=== PATIENT | male | born 1955 | race African-American/Black ===

== ENCOUNTER 2018-06-03 20:51 | Observation (INO) ==
[2018-06-03] MEDS ORDERED: Aspirin 81 MG TAB.CHEW PO ONE (21:05)
[2018-06-03] MEDS ORDERED: *HR* FentaNYL (PF) 100 MCG/2 ML VIAL IVP ONE (21:10)
--- NOTE | 2018-06-03 21:10 | Emergency Department Note ---
Disposition Clinical Impression: Chest pain Qualifiers: Chest pain type: unspecified Qualified Code(s): R07.9 - Chest pain, unspecified Disposition: Still a Patient Condition: Good [facility]errals: [facility]Primary Care Provider[facility] - Forms: ED Satisfaction Letter Time of Disposition: 22:54 Chest Pain HPI - General Chief Complaint: ED Chest Pain Stated Complaint: chest pain Time Seen by Provider: 06/03/18 21:10 Source: patient, EMS Mode of arrival: EMS Limitations: no limitations Vital Signs Reviewed: Yes Nursing Notes Reviewed: Yes - History of Present Illness HPI Narrative: Patient is a 62-year-old male with past medical history of A. fib, has a pacer defibrillator placed, on Coumadin, type 2 diabetes, hypertension. Presents today due to chest discomfort. He states that chest pain started around 9:30 this morning, described as a sharp left-sided pain with no radiation, started as an 8 out of 10 and is now a 5 out of 10. Denies that the pain has never went completely away. Pain does mildly worsened with deep inspiration. Does not worsen with exertion. Denies any other nausea, vomiting, fevers, diarrhea, abdominal pain, dysuria, hematuria. Denies any previous VT, stent placement. He does state that he had a negative heart catheter around 2 years ago. No recent stress test or heart catheter within the past year. Severity scale (1-10): 5 - Related Data Allergies Allergy/AdvReac Type Severity Reaction Status Date / Time No Known Allergies Allergy Verified 06/03/18 20:55 All systems ED: reviewed and negative except as stated. Constitutional: Denies: fever Cardiovascular: Reports: chest pain Respiratory: Reports: dyspnea. Denies: cough, wheezes Gastrointestinal: Denies: abdominal pain, nausea, vomiting, diarrhea Genitourinary: Denies: urgency, dysuria Integumentary: Denies: rash Neurological: Denies: headache, weakness, numbness, paresthesias Chest Pain PMH - Past Medical History Medical history: Reports: coronary artery disease, diabetes, hypertension Psychiatric history: Reports: no psych history - Social History Smoking Status: Current every day smoker Alcohol use: Reports: none Drug use: Reports: none Physical Exam - General Limitations: no limitations General appearance: alert, in no apparent distress - Head Head exam: atraumatic, normocephalic, normal inspection - Eye Eye exam: Present: normal appearance, PERRL, EOMI - ENT ENT exam: normal exam, normal oropharynx, mucous membranes moist - Neck Neck exam: Present: normal inspection, full ROM, trachea midline - Chest Chest inspection: Present: normal inspection, symmetric chest wall rise, other ( Pacemaker of the left chest). Absent: tenderness, rash - Respiratory Respiratory exam: Present: normal lung sounds bilaterally - Cardiovascular Cardiovascular exam: Present: regular rate, normal rhythm, normal heart sounds - Abdominal Exam Abdominal exam: Present: soft, Non-Tender. Absent: tenderness, distention, guarding, rebound, rigidity - Extremities Exam Extremities exam: Present: normal inspection, full ROM. Absent: tenderness, pedal edema - Neurological Exam Neurological exam: Present: alert, oriented X3 - Psychiatric Psychiatric exam: Present: normal affect, normal mood - Skin Skin exam: Present: warm, dry, intact, normal color Course Course Narrative: Patient was given aspirin and, fentanyl for pain control. EKG shows normal sinus rhythm with mild ST elevation in V3. Otherwise no STEMI criteria. Cardiac workup ordered including chest x-ray, troponin, d-dimer was also ordered due to pleuritic nature of the pain. We will check PT/INR due to the patient being on warfarin. 21:52 troponin negative. D-dimer elevated. CTA of the chest ordered. INR 3.2. 22:52 Pending CTA of the chest. Will sign out to night team, Dr. Braswell and Dr. Cohen for further care and disposition. Recommend admission due to nonspecific ST changes in the setting of chest pain. Vital Signs Temperature 97.8 F 06/03/18 20:56 Pulse Rate 68 06/03/18 20:56 Respiratory Rate 13 06/03/18 20:56 Blood Pressure 177/98 06/03/18 20:56 O2 Sat by Pulse Oximetry 100 06/03/18 20:56 Temperature 97.8 F 06/03/18 20:56 Pulse Rate 65 06/03/18 21:35 Respiratory Rate 14 06/03/18 21:35 Blood Pressure 154/86 06/03/18 21:35 O2 Sat by Pulse Oximetry 99 06/03/18 21:35 Oxygen Delivery Oxygen Delivery Room Air Chest Pain - MDM Narrative Medical decision making narrative: Patient was given aspirin and, fentanyl for pain control. EKG shows normal sinus rhythm with mild ST elevation in V3. Otherwise no STEMI criteria. Cardiac workup ordered including chest x-ray, troponin, d-dimer was also ordered due to pleuritic nature of the pain. We will check PT/INR due to the patient being on warfarin. 21:52 troponin negative. D-dimer elevated. CTA of the chest ordered. INR 3.2. 22:52 Pending CTA of the chest. Will sign out to night team, Dr. Braswell and Dr. Cohen for further care and disposition. Recommend admission due to nonspecific ST changes in the setting of chest pain. - Medical Records Medical records reviewed: Yes I reviewed the patient's medical records. - Lab Data Lab results reviewed: Yes I reviewed the patient's lab results. Result diagrams: 06/03/18 21:11 06/03/18 21:11 Lab Results 06/03/18 06/03/18 06/03/18 Range/Units 21:01 21:11 21:11 WBC 6.5 (4.3-11.1) K/mcL RBC 4.36 (4.19-5.50) M/mcL Hgb 13.5 (12.9-16.9) g/dL Hct 39.4 (37.5-50.1) % MCV 90.4 (83.0-100.0) fL MCH 31.0 (28.0-33.3) pg MCHC 34.3 (31.6-35.5) g/dL RDW 13.8 (11.5-14.5) % Plt Count 208 (140-400) K/mcL MPV 9.2 L (9.4-12.4) fL Immature Gran % 0.2 (0-4) % Seg Neutrophils % 53.7 % Lymphocytes % 37.5 % Monocytes % 6.4 % Eosinophils % 2.0 % Basophils % 0.2 % Neutrophils # 3.5 (1.6-8.9) K/mcL Lymphocytes # 2.5 (0.6-4.6) K/mcL Monocytes # 0.4 (0.0-1.3) K/mcL Eosinophils # 0.1 (0.0-0.6) K/mcL Basophils # 0.0 (0.0-0.2) K/mcL PT 35.8 H (9.4-12.1) Seconds INR 3.2 D-Dimer 806 H (0-500) ng/mLFEU Sodium 140 (136-145) mEq/L Potassium 3.4 L (3.5-5.1) mEq/L Chloride 108 H (98-107) mEq/L Carbon Dioxide 27 (23-29) mEq/L BUN 9 (8-23) mg/dL Creatinine 0.86 (0.70-1.30) mg/dL Est GFR ( Amer) > 60 (> 60) Est GFR (Non-Af Amer) > 60 (> 60) BUN/Creatinine Ratio 10 (6-26) Glucose 76 (70-105) mg/dL Calculated Osmolality 287 (280-300) Calcium 9.6 (8.6-10.3) mg/dL Troponin I < 0.03 (< 0.04) ng/mL - Radiology Data Radiology results reviewed: Yes I reviewed the patient's radiology results. - EKG Data EKG attestation: Yes I reviewed and interpreted this EKG. EKG results narrative: 06/03/2018 at 20:54. Normal sinus rhythm. Rate 69. IA 253. QTC 385. Mild left axis deviation. ST elevation in V3. No STEMI criteria. Heart Score - Score History: Moderately Suspicious EKG: Non Specific repolarisation Disturbance Age: 45-65 Risk Factors: 1-2 risk factors Troponin: Less than normal limit HEART Score Total: 4 S.B.A.R. - S.B.A.R. Situation: Demographics, MOA Background: Presenting Complaint, Relevant PMH, Meds, & Allergies Assessment: Vital Signs, Course and respsone to treatment, Exam Concerns, Patient/Family Expectation, Pertinant Lab Results, Outstanding Labs Recommendation: Barrier(s) to disposition, Recommendation based on pending studies, treatments, or consults S.B.A.R. Report Given to: Dr. Shaver, Dr. Braswell
[2018-06-03 21:23] LABS: Basophils % 0.2 %; Eosinophils # 0.1 K/mcL (0.0-0.6); Hematocrit 39.4 % (37.5-50.1); Hemoglobin 13.5 g/dL (12.9-16.9); Immature Granulocytes % 0.2 % (0-4); Lymphocytes # 2.5 K/mcL (0.6-4.6); Lymphocytes % 37.5 %; Mean Corpuscular HGB Conc 34.3 g/dL (31.6-35.5); Mean Corpuscular Volume 90.4 fL (83.0-100.0); Mean Platelet Volume 9.2 fL (9.4-12.4); Monocytes # 0.4 K/mcL (0.0-1.3); Monocytes % 6.4 %; Neutrophils # 3.5 K/mcL (1.6-8.9); Platelet Count 208 K/mcL (140-400); Red Blood Count 4.36 M/mcL (4.19-5.50); Red Cell Distribution Width 13.8 % (11.5-14.5); Segmented Neutrophils % 53.7 %
[2018-06-03 21:28] LABS: INR 3.2; Prothrombin Time 35.8 Seconds (9.4-12.1)
--- NOTE | 2018-06-03 21:30 | Emergency Department Note ---
Disposition Clinical Impression: Chest pain Qualifiers: Chest pain type: unspecified Qualified Code(s): R07.9 - Chest pain, unspecified Disposition: Still a Patient Condition: Good [facility]errals: [facility] [Primary Care Provider] - Forms: ED Satisfaction Letter General Adult HPI - General Chief complaint: ED Chest Pain Stated complaint: chest pain Time Seen by Provider: 06/03/18 21:10 Source: patient, EMS Mode of arrival: EMS Limitations: no limitations - History of Present Illness Pain Scale: 5 - Related Data Allergies Allergy/AdvReac Type Severity Reaction Status Date / Time No Known Allergies Allergy Verified 06/03/18 20:55 Past Medical History - Past Medical History Medical history: Reports: coronary artery disease, diabetes, hypertension Psychiatric history: Reports: no psych history - Social History Smoking Status: Current every day smoker Smokeless Tobacco Status: No Alcohol use: Reports: none Drug use: Reports: none Physical Exam - General Limitations: no limitations General appearance: alert, in no apparent distress Course Vital Signs Temperature 97.8 F 06/03/18 20:56 Pulse Rate 68 06/03/18 20:56 Respiratory Rate 13 06/03/18 20:56 Blood Pressure 177/98 06/03/18 20:56 O2 Sat by Pulse Oximetry 100 06/03/18 20:56 Temperature 97.8 F 06/03/18 20:56 Pulse Rate 63 06/03/18 23:02 Respiratory Rate 11 06/03/18 23:02 Blood Pressure 167/95 06/03/18 23:02 O2 Sat by Pulse Oximetry 95 06/03/18 23:02 Oxygen Delivery Oxygen Delivery Room Air Medical Decision Making - Lab Data Result diagrams: 06/03/18 21:11 06/03/18 21:11 Lab Results 06/03/18 06/03/18 06/03/18 Range/Units 21:01 21:11 21:11 WBC 6.5 (4.3-11.1) K/mcL RBC 4.36 (4.19-5.50) M/mcL Hgb 13.5 (12.9-16.9) g/dL Hct 39.4 (37.5-50.1) % MCV 90.4 (83.0-100.0) fL MCH 31.0 (28.0-33.3) pg MCHC 34.3 (31.6-35.5) g/dL RDW 13.8 (11.5-14.5) % Plt Count 208 (140-400) K/mcL MPV 9.2 L (9.4-12.4) fL Immature Gran % 0.2 (0-4) % Seg Neutrophils % 53.7 % Lymphocytes % 37.5 % Monocytes % 6.4 % Eosinophils % 2.0 % Basophils % 0.2 % Neutrophils # 3.5 (1.6-8.9) K/mcL Lymphocytes # 2.5 (0.6-4.6) K/mcL Monocytes # 0.4 (0.0-1.3) K/mcL Eosinophils # 0.1 (0.0-0.6) K/mcL Basophils # 0.0 (0.0-0.2) K/mcL PT 35.8 H (9.4-12.1) Seconds INR 3.2 D-Dimer 806 H (0-500) ng/mLFEU Sodium 140 (136-145) mEq/L Potassium 3.4 L (3.5-5.1) mEq/L Chloride 108 H (98-107) mEq/L Carbon Dioxide 27 (23-29) mEq/L BUN 9 (8-23) mg/dL Creatinine 0.86 (0.70-1.30) mg/dL Est GFR ( Amer) > 60 (> 60) Est GFR (Non-Af Amer) > 60 (> 60) BUN/Creatinine Ratio 10 (6-26) Glucose 76 (70-105) mg/dL Calculated Osmolality 287 (280-300) Calcium 9.6 (8.6-10.3) mg/dL Troponin I < 0.03 (< 0.04) ng/mL Attestation Statement - Attestation Attestation: I examined this patient and my medical decision-making was reviewed with the WILD LIFE MANAGER/PA/Advanced Practice Nurse/Resident Physician. I agree with the documented findings, disposition and treatment plan as described except to the extent set forth below. Presents with chest pain which is constant for the last 12 hours and is worse with exertion. No diaphoresis or dyspnea. Does have a pleuritic aspect. No radiation. Patient states he had a coronary catheterization 2 years ago which was clean. Has a pacemaker. Does have atrial fibrillation and is on anticoagulation with Coumadin and a INR is checked as well as labs including troponin and d-dimer. 2130 I did review the EKG showing normal sinus rhythm with rate of 69 with some nonspecific EKG changes in lead 1 as well as lead V2 which intact some minimal ST elevation which is less than 1 mm. Labs are pending. D-dimer is positive/ elevated so the patient will have a CT scan of the chest 214
[2018-06-03] MEDS ORDERED: Isovue-370 500 ML INFUS..BTL IV ONE (21:43)
[2018-06-03 21:44] LABS: BUN/Creatinine Ratio 10 (6-26); Blood Urea Nitrogen 9 mg/dL (8-23); Calcium 9.6 mg/dL (8.6-10.3); Carbon Dioxide 27 mEq/L (23-29); Chloride 108 mEq/L (98-107); Glucose 76 mg/dL (70-105); Osmolality,Calculated 287 (280-300); Potassium 3.4 mEq/L (3.5-5.1); Sodium 140 mEq/L (136-145); eGFR For Non-African Americans > 60 (> 60)
[2018-06-03 21:45] LABS: Troponin I < 0.03 ng/mL (< 0.04)
[2018-06-04] MEDS ORDERED: Naloxone 0.4 MG/ML INJ IVP PRN (02:43)
[2018-06-04] MEDS ORDERED: Dextrose Gel 15 GM/37.5 ML TUBE PO PRN ×2 (02:44)
[2018-06-04] MEDS ORDERED: *HR* Dextrose 50 % in Water (Syg) 50 ML SYRINGE IVP PRN (02:44)
[2018-06-04] MEDS ORDERED: D5% in Water 1,000 ML IVC PRN (02:44)
[2018-06-04] MEDS ORDERED: Nitroglycerin 0.4 MG TAB.SUBL SL PRN (02:46)
[2018-06-04 03:57] LABS: Hematocrit 43.9 % (37.5-50.1); Hemoglobin 14.6 g/dL (12.9-16.9); Mean Corpuscular HGB Conc 33.3 g/dL (31.6-35.5); Mean Corpuscular Volume 90.1 fL (83.0-100.0); Mean Platelet Volume 9.1 fL (9.4-12.4); Platelet Count 197 K/mcL (140-400); Red Blood Count 4.87 M/mcL (4.19-5.50); Red Cell Distribution Width 13.9 % (11.5-14.5)
[2018-06-04 04:02] LABS: INR 2.9; Prothrombin Time 32.3 Seconds (9.4-12.1)
[2018-06-04 04:05] LABS: BUN/Creatinine Ratio 11 (6-26); Blood Urea Nitrogen 8 mg/dL (8-23); Calcium 9.9 mg/dL (8.6-10.3); Carbon Dioxide 29 mEq/L (23-29); Chloride 107 mEq/L (98-107); Glucose 95 mg/dL (70-105); Osmolality,Calculated 288 (280-300); Potassium 3.7 mEq/L (3.5-5.1); Sodium 140 mEq/L (136-145); eGFR For Non-African Americans > 60 (> 60)
[2018-06-04] MEDS: Insulin LISPRO 300 UNITS/3 ML VIAL SQ SCH ×3 (06:22→18:16)
--- NOTE | 2018-06-04 06:31 | Internal Med History&Physical ---
Date of Encounter: 06/04/18 Time of Encounter: 02:20 Internal Medicine - H&P: HPI Chief complaint: Chest pain Admitted From: Home Plans for Post Hospital Care: Home History of present illness: Mr. Wilks is a 62 year old male Patient states that he woke up the day of admission and had some left sided chest pain which he tried to ignore. Later in the afternoon it started to increase, but he thought it was indigestion from greasy sausage that he had eaten the night before. He tried Rolaids which improved the pain slightly. The pain slowly returned, he mentioned this to a friend on the phone who advised him to go the emergency room for evaluation. He has a history of atrial fibrillation, pacemaker placement, and hypertension. Of note, patient was out working in the yard 2 days prior to his symptom onset. In the emergency room chest x-ray showed mild pulmonary basal congestion, CTA was negative for PE, his INR was 3.2. His troponin was less than 0.03. EKG showed normal sinus rhythm with perhaps a mild ST change and V3. He was admitted for further management of his chest pain. Upon my assessment, patient is sleeping comfortably in the bed. He states that he still has some chest pain but it is improved. He denies nausea, vomiting, fever, diarrhea, abdominal pain. Past Med Surg Social Fam HX - Past Medical History Medical history: coronary artery disease, diabetes, hypertension Psychiatric history: no psych history - Social History Smoking Status: Current every day smoker Smokeless Tobacco Status: No Alcohol use: none Drug use: none - Family History Mother Hx Family Cardiac Disorders: Yes ([place]) Hx Family Neuromuscular Disorders: Yes (stroke) Brother Hx Family Cardiac Disorders: Yes (pacer) Internal Medicine - H&P: Meds Atenolol [Tenormin] 5 mg PO DAILY 06/04/18 [History] Omeprazole [PriLOSEC] 40 mg PO DAILY 06/04/18 [History] Warfarin [Coumadin] 7 mg PO DAILY 06/04/18 [History] Warfarin [Coumadin] 7.5 mg PO DAILY 06/04/18 [History] 3 Allergy/AdvReac Type Severity Reaction Status Date / Time No Known Allergies Allergy Verified 06/03/18 20:55 All Systems PM: A 10-system review of systems was performed and is negative for pertinent findings except as documented above in the HPI. - Constitutional Vitals: Temp Pulse Resp BP Pulse Ox 98.0 F 62 16 172/84 99 06/04/18 01:17 06/04/18 01:17 06/04/18 01:17 06/04/18 01:17 06/04/18 01:17 General appearance: Present: cooperative, A&O X 3, pleasant, no acute distress, answers questions appropriately - Head Head exam: Present: normal inspection - Eye Eye exam: Present: EOMI, normal appearance - Respiratory Respiratory exam: Present: chest wall tenderness, CTAB. Absent: respiratory distress, wheezes Additional comments: Slightly tender to palpation on the left side of the chest - Cardiovascular Cardiovascular exam: Present: RRR. Absent: diastolic murmur, systolic murmur - GI/Abdominal GI/Abdominal exam: Present: normal bowel sounds, soft. Absent: tenderness - Extremities Exam Extremities exam: Present: warm, radial pulses palpable and symmetrical. Absent : calf tenderness, pedal edema, tenderness - Neurological Exam Neurological exam: Present: no focal deficits, strengths equal and symetr throughout. Absent: motor sensory deficit, facial droop, speech deficit - Skin Skin exam: Present: dry, normal color, warm Internal Med - H&P Results - Labs CBC & Chem 7: 06/04/18 03:30 06/04/18 03:30 Labs: Short CBC 06/04/18 Range/Units 03:30 WBC 6.0 (4.3-11.1) K/mcL Hgb 14.6 (12.9-16.9) g/dL Hct 43.9 (37.5-50.1) % Plt Count 197 (140-400) K/mcL BMP 06/04/18 03:30 Sodium 140 Potassium 3.7 Chloride 107 Carbon Dioxide 29 BUN 8 Creatinine 0.72 Glucose 95 Calcium 9.9 Cardiac Enzymes 06/04/18 Range/Units 03:30 Troponin I < 0.03 (< 0.04) ng/mL - Assessment and plan (1) Chest pain Current Visit: Yes Status: Acute Assessment and plan: Patient presented with chest pain, workup in the emergency room negative. Therapeutic INR 2.9. 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 Consider stress test or echo, as patient has not had either for many years Qualifiers: Chest pain type: unspecified Qualified Code(s): R07.9 - Chest pain, unspecified (2) History of atrial fibrillation Current Visit: Yes Status: Acute Assessment and plan: Patient on Coumadin, currently therapeutic at 2.9 Continue to monitor (3) Diabetes Current Visit: Yes Status: Acute Assessment and plan: Patient takes glipizide at home, blood glucose 76 in the emergency room Continue to monitor blood sugar before meals at bedtime Low-dose insulin sliding scale if needed Qualifiers: Diabetes mellitus type: type 2 Diabetes mellitus emt intermediate insulin use: without mcc use Diabetes mellitus complication status: without complication Qualified Code(s): E11.9 - Type 2 diabetes mellitus without complications (4) Hypertension Current Visit: Yes Status: Acute Assessment and plan: Patient takes atenolol at home. Continue to monitor Qualifiers: Hypertension type: essential hypertension Qualified Code(s): I10 - Essential (primary) hypertension - Time Spent With Patient Total time spent is greater than 50% in coordination of care (as documented) at patient's floor/unit and/or counseling patient: Greater than 35 minutes
[2018-06-04] MEDS ORDERED: Regadenoson 0.4 MG/5 ML SYRINGE IVP ONE ×2 (09:37→10:10)
--- NOTE | 2018-06-04 15:39 | Internal Med Progress Note ---
Hospitalist Progress Note - Encounter Date of Encounter: 06/04/18 Time of Encounter: 15:29 - Exam Vitals: Temp Pulse Resp BP Pulse Ox 97.7 F 65 16 151/89 95 06/04/18 12:56 06/04/18 12:56 06/04/18 12:56 06/04/18 12:56 06/04/18 12:56 Exam: General appearance: Present: cooperative, A&O X 3, pleasant, no acute distress, answers questions appropriately - Head Head exam: Present: normal inspection - Eye Eye exam: Present: EOMI, normal appearance - Respiratory Respiratory exam: Present: chest wall tenderness, CTAB. Absent: respiratory distress, wheezes Additional comments: Slightly tender to palpation on the left side of the chest - Cardiovascular Cardiovascular exam: Present: RRR. Absent: diastolic murmur, systolic murmur - GI/Abdominal GI/Abdominal exam: Present: normal bowel sounds, soft. Absent: tenderness - Extremities Exam Extremities exam: Present: warm, radial pulses palpable and symmetrical. Absent : calf tenderness, pedal edema, tenderness - Neurological Exam Neurological exam: Present: no focal deficits, strengths equal and symetr throughout. Absent: motor sensory deficit, facial droop, speech deficit - Skin Skin exam: Present: dry, normal color, warm - Assessment and Plan (1) Chest pain Current Visit: Yes Status: Acute Assessment and Plan: 1 Presented with L sided CP which he mistaken for indigestion . The pain was relieved with nitro He has hx of afib and pacemaker placement. He is on coumadin CTA of chest which was negative Trop negative - underwent cardiac stress - Impression: Pharmacologic stress ECG is non diagnostic for ischemia due to baseline non-specific ST and T changes. Gated EF = 72%. Small sized, mild intensity, fixed inferior perfusion defect. Wall motion appears normal. These findings are consistent with artifact. Perfusion imaging was positive for ischemia. I consulted cardiology Dr Michelle who will see patient (2) Diabetes Current Visit: Yes Status: Acute (3) History of atrial fibrillation Current Visit: Yes Status: Acute Assessment and Plan: Cont with Coumadin - INR 2.9 cont to monitor- pharmacy to dose (4) Hypertension Current Visit: Yes Status: Acute Assessment and Plan: cont with home medications (5) DVT prophylaxis Current Visit: Yes Status: Acute Assessment and Plan: on Coumadin we will continue - Time Spent with Patient Total time spent is greater than 50% in coordination of care (as documented) at patient's floor/unit and/or counseling patient: Internal Medicine: Result - Labs CBC & Chem 7: 06/04/18 03:30 06/04/18 03:30 Labs: Short CBC 06/04/18 Range/Units 03:30 WBC 6.0 (4.3-11.1) K/mcL Hgb 14.6 (12.9-16.9) g/dL Hct 43.9 (37.5-50.1) % Plt Count 197 (140-400) K/mcL BMP 06/04/18 03:30 Sodium 140 Potassium 3.7 Chloride 107 Carbon Dioxide 29 BUN 8 Creatinine 0.72 Glucose 95 Calcium 9.9 Cardiac Enzymes 06/04/18 06/04/18 Range/Units 03:30 09:13 Troponin I < 0.03 < 0.03 (< 0.04) ng/mL - ABG Interpretation ABG results: PT/INR, D-dimer PT 32.3 Seconds (9.4-12.1) H 06/04/18 03:30 D-Dimer 806 ng/mLFEU (0-500) H 06/03/18 21:01 - Impressions Impressions Echocardiogram 06/04/18 08:11 Impressions: LVEF 60-65%. Normal LV chamber size and function. Mild concentric left ventricular hypertrophy. Mild left ventricular diastolic dysfunction. Chordal BRIGETTE (systolic anterior motion) of the MV, no LVOT obstruction. Normal right ventricular structure and function. Mild pulmonic regurgitation. No evidence of pulmonary hypertension. Findings: Study Quality * Technically adequate exam. Left Ventricle * LVEF 60-65%. * Normal LV chamber size and function. * Mild concentric left ventricular hypertrophy. * Mild left ventricular diastolic dysfunction. * Chordal BRIGETTE (systolic anterior motion) of the MV, no LVOT obstruction. Right Ventricle * Normal right ventricular structure and function. ECG Findings * Normal sinus rhythm. Left Atrium * Mildly dilated left atrium. Right Atrium * Normal right atrial size. Aortic Valve * Trileaflet aortic valve. * No aortic regurgitation. * No aortic stenosis. Mitral Valve * Normal mitral valve structure. * No mitral regurgitation. * No mitral stenosis. Tricuspid Valve * Normal tricuspid valve structure and function. * Trace tricuspid regurgitation. * No evidence of pulmonary hypertension. Pulmonic Valve * Normal pulmonic valve structure. * Mild pulmonic regurgitation. Aorta * Normally sized aortic root. Pericardium * The pericardium appears normal. IVC * Normal IVC dimensions and inspiratory collapse. Pulmonary Artery * Normal visualized portions of the main pulmonary artery. 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
[2018-06-04] MEDS ORDERED: Warfarin 4 MG, Warfarin 3 MG PO ONE (18:00)
[2018-06-04] MEDS ORDERED: Warfarin perPT PO PRN (18:00)
[2018-06-05] MEDS: Insulin LISPRO 300 UNITS/3 ML VIAL SQ SCH ×4 (01:50→16:33)
[2018-06-05 04:31] LABS: Basophils % 0.3 %; Eosinophils # 0.2 K/mcL (0.0-0.6); Eosinophils % 2.4 %; Hematocrit 45.3 % (37.5-50.1); Hemoglobin 15.5 g/dL (12.9-16.9); Immature Granulocytes % 0.8 % (0-4); Immature Platelets 1.7 % (1.1-6.1); Lymphocytes % 29.7 %; Mean Corpuscular HGB Conc 34.2 g/dL (31.6-35.5); Mean Corpuscular Hemoglobin 30.6 pg (28.0-33.3); Mean Corpuscular Volume 89.5 fL (83.0-100.0); Mean Platelet Volume 9.2 fL (9.4-12.4); Monocytes # 0.5 K/mcL (0.0-1.3); Monocytes % 7.3 %; Neutrophils # 3.9 K/mcL (1.6-8.9); Platelet Count 216 K/mcL (140-400); Red Blood Count 5.06 M/mcL (4.19-5.50); Red Cell Distribution Width 13.6 % (11.5-14.5); Segmented Neutrophils % 59.5 %
[2018-06-05 04:35] LABS: INR 2.1; Prothrombin Time 23.8 Seconds (9.4-12.1)
[2018-06-05 04:50] LABS: BUN/Creatinine Ratio 13 (6-26); Blood Urea Nitrogen 10 mg/dL (8-23); Calcium 9.6 mg/dL (8.6-10.3); Carbon Dioxide 27 mEq/L (23-29); Chloride 106 mEq/L (98-107); Glucose 117 mg/dL (70-105); Osmolality,Calculated 284 (280-300); Potassium 3.6 mEq/L (3.5-5.1); Sodium 137 mEq/L (136-145); eGFR For Non-African Americans > 60 (> 60)
--- NOTE | 2018-06-05 13:57 | Cardiology Consult Note ---
Date of Encounter: 06/05/18 Time of Encounter: 13:00 Assessment and Plan (1) Chest pain Current Visit: Yes Status: Acute Chest pain suggestive of anginal etiology, non-specific EKG changes, positive stress test, discussed options, recommend LHC to evaluate coronary artery anatomy for possible revascularization, risks and benefits discussed, pt elects to proceed, order placed for LHC/poss Wednesday. Will check INR, repeat EKG, begin dual antiplatelet Tx. Qualifiers: Chest pain type: chest pain due to myocardial ischemia Qualified Code(s): I20.0 - Unstable angina (2) Tobacco abuse Current Visit: Yes Status: Acute Continues to smoke against medical advice, discussed smoking cessation, pt will consider. (3) History of atrial fibrillation Current Visit: Yes Status: Acute HX PAF, in NSR on evaluation, on warfarin for primary stroke risk reduction, on hold for possible LHC. Will recheck INR. Hx bradycardia with atenolol for rate control for A fib, with PPMK for sick sinus syndrome. (4) Hypertension Current Visit: Yes Status: Chronic Hx hypertension, reports blood pressure has been controlled on current meds, will continue to follow. Qualifiers: Hypertension type: essential hypertension Qualified Code(s): I10 - Essential (primary) hypertension Discussion w patient/family: The assessment and plan as outlined above was discussed with the patient and/or family members who expressed understanding and agreement. All questions were answered. Thank you for involving us in the care of your patient. Please call with any questions. History of Present Illness Consult date: 06/05/18 Requesting physician: Kristie Parisi Consult reason: chest pain Chief complaint: Chest pain History of present illness: Mr. Wilks is a 62 year old male who presented to ER with complaint of sudden onset severe 8/10 mid epigastric pain, awakening him from sleep, burning pain, with squeezing sensation, lasted approximately an hour, improved slightly with antacids, eventually resolved spontaneously. He had recurrent chest pain, less severe, 4/10 associated with mild SOB, was convinced by friends to come to ER. He reports chest pain was resolved before arrived at ER. He reports has had mild episodes of chest pain, most severe 2/10 which comes and goes spontaneously since admission, episodes lasting two to three minutes not associated with nausea, diaphoresis or shortness of breath. Past Med Surg Social Fam HX - Past Medical History Medical history: coronary artery disease, diabetes, hypertension, other (atrial fib) Psychiatric history: no psych history - Past Surgical History Surgical History: pacemaker - Social History Smoking Status: Current every day smoker Smokeless Tobacco Status: No Alcohol use: none Drug use: none - Family History Mother Hx Family Cardiac Disorders: Yes ([place]) Hx Family Neuromuscular Disorders: Yes (stroke) Brother Hx Family Cardiac Disorders: Yes (pacer) Medications and Allergies Albuterol Sulfate [Albuterol Inhaler] 2 puff IH Q4HR PRN 06/04/18 [History] Atenolol [Tenormin] 12.5 mg PO DAILY 06/04/18 [History] Cyclobenzaprine HCl 10 mg PO TID PRN 06/04/18 [History] Dextran 70/Hypromellose [Natural Balance Tears Eye Drop] 1 drop BOTH EYES QID [History] Donepezil [Aricept] 5 mg PO HS 06/04/18 [History] Latanoprost [Xalatan] 1 drop BOTH EYES HS 06/04/18 [History] Loratadine [Allergy Relief] 10 mg PO DAILY 06/04/18 [History] Metformin HCl 500 mg PO BID 06/04/18 [History] Naproxen 500 mg PO Q12H PRN 06/04/18 [History] Omeprazole [PriLOSEC] 40 mg PO DAILY 06/04/18 [History] Pravastatin Sodium [Pravachol] 40 mg PO HS 06/04/18 [History] Tramadol HCl [Ultram] 50 mg PO QID PRN 06/04/18 [History] Warfarin [Coumadin] 7 mg PO SUTUWETHSA 06/04/18 [History] Warfarin [Coumadin] 7.5 mg PO MOFR 06/04/18 [History] amLODIPine [Norvasc] 5 mg PO DAILY 06/04/18 [History] glipiZIDE [Glucotrol] 5 mg PO 0800 06/04/18 [History] traZODone [TraZODone] 50 - 100 mg PO HS PRN 06/04/18 [History] 3 Allergy/AdvReac Type Severity Reaction Status Date / Time No Known Allergies Allergy Verified 06/03/18 20:55 All Systems Review: The remainder of the systems were reviewed and are negative - Constitutional Constitutional: fatigue - Cardiovascular Cardiovascular: irregular heart rhythm, palpitations, rapid heart rate - Respiratory Respiratory: dyspnea - Gastrointestinal Gastrointestinal: nausea Physical Examination Vital Signs, Last 4 Hours Temp Pulse Resp BP Pulse Ox 06/05/18 11:15 97.8 F 60 16 148/88 95 General: Conversant, No Apparent Distress HEENT: Atraumatic, Normocephaly, Mucus Membranes Moist Neck: No JVD, Normal carotid pulses Cardiac: Reg Rate and Rhythm, Normal S1 and S2, No Murmur Lungs: Normal Breath Sounds Neuro: Alert and responsive, No focal deficits noted Abdomen: Soft, Non-Tender Skin: No rashes noted on visualized skin Musculoskeletal: No Chest Wall Tenderness Extremities: No Clubbing, No Cyanosis, No Edema, Normal Pulses Results 06/05/18 04:06 06/05/18 04:06 Lab Results 06/05/18 06/05/18 06/05/18 04:06 04:06 04:06 WBC 6.6 Hgb 15.5 Hct 45.3 Plt Count 216 INR 2.1 Sodium 137 Potassium 3.6 Chloride 106 Carbon Dioxide 27 BUN 10 Creatinine 0.78 Glucose 117 H Calcium 9.6 Consult Discharge Plan - Plan [facility]errals: [facility] [Primary Care Provider] -
[2018-06-05] MEDS ORDERED: *HR* Ticagrelor 90 MG TABLET PO ONE (14:11)
--- NOTE | 2018-06-05 15:14 | Internal Med Progress Note ---
Hospitalist Progress Note - Encounter Date of Encounter: 06/05/18 Time of Encounter: 15:08 - Subjective Interval History: Patient seen and examined at bedside Currently not having any CP or SOB- Anticipate possible LHC in am Reviewed with the patient who verbalized understanding - Exam Vitals: Temp Pulse Resp BP Pulse Ox 97.8 F 60 16 148/88 95 06/05/18 11:15 06/05/18 11:15 06/05/18 11:15 06/05/18 11:15 06/05/18 11:15 Exam: General appearance: Present: cooperative, A&O X 3, pleasant, no acute distress, answers questions appropriately - Head Head exam: Present: normal inspection - Eye Eye exam: Present: EOMI, normal appearance - Respiratory Respiratory exam: Present: chest wall tenderness, CTAB. Absent: respiratory distress, wheezes Additional comments: Slightly tender to palpation on the left side of the chest - Cardiovascular Cardiovascular exam: Present: RRR. Absent: diastolic murmur, systolic murmur - GI/Abdominal GI/Abdominal exam: Present: normal bowel sounds, soft. Absent: tenderness - Extremities Exam Extremities exam: Present: warm, radial pulses palpable and symmetrical. Absent : calf tenderness, pedal edema, tenderness - Neurological Exam Neurological exam: Present: no focal deficits, strengths equal and symetr throughout. Absent: motor sensory deficit, facial droop, speech deficit - Skin Skin exam: Present: dry, normal color, warm - Assessment and Plan (1) Chest pain Current Visit: Yes Status: Acute Assessment and Plan: 1 Presented with L sided CP which he mistaken for indigestion . The pain was relieved with nitro He has hx of afib and pacemaker placement. He is on coumadin CTA of chest which was negative Trop negative - underwent cardiac stress - Impression: Pharmacologic stress ECG is non diagnostic for ischemia due to baseline non-specific ST and T changes. Gated EF = 72%. Small sized, mild intensity, fixed inferior perfusion defect. Wall motion appears normal. These findings are consistent with artifact. Perfusion imaging was positive for ischemia. I consulted cardiology - recommending LHC in AM we will hold coumadin overnight check PT/INR Cardiology ordered Brilinta cont ASA NPO at midnight (2) Diabetes Current Visit: Yes Status: Acute Assessment and Plan: accucheck every 6hr while NPO - hold glipizide resume at discharge (3) History of atrial fibrillation Current Visit: Yes Status: Acute Assessment and Plan: Hold coumadin for possible LHC in am check PT/INR (4) Hypertension Current Visit: Yes Status: Chronic (5) DVT prophylaxis Current Visit: Yes Status: Acute Assessment and Plan: on Coumadin we will continue - Time Spent with Patient Total time spent is greater than 50% in coordination of care (as documented) at patient's floor/unit and/or counseling patient: Internal Medicine: Result - Labs CBC & Chem 7: 06/05/18 04:06 06/05/18 04:06 Labs: Short CBC 06/05/18 Range/Units 04:06 WBC 6.6 (4.3-11.1) K/mcL Hgb 15.5 (12.9-16.9) g/dL Hct 45.3 (37.5-50.1) % Plt Count 216 (140-400) K/mcL Neutrophils # 3.9 (1.6-8.9) K/mcL BMP 06/05/18 04:06 Sodium 137 Potassium 3.6 Chloride 106 Carbon Dioxide 27 BUN 10 Creatinine 0.78 Glucose 117 H Calcium 9.6 - ABG Interpretation ABG results: PT/INR, D-dimer PT 23.8 Seconds (9.4-12.1) H 06/05/18 04:06 D-Dimer 806 ng/mLFEU (0-500) H 06/03/18 21:01 Consult Discharge Plan - Plan [facility]errals: [facility] [Primary Care Provider] - (1) Chest pain Qualifiers: Chest pain type: chest pain due to myocardial ischemia (2) Diabetes Qualifiers: Diabetes mellitus type: type 2 Diabetes mellitus exterminator helper insulin use: without exterminator helper use Diabetes mellitus complication status: without complication Qualified Code(s): E11.9 - Type 2 diabetes mellitus without complications (4) Hypertension Qualifiers: Hypertension type: essential hypertension Qualified Code(s): I10 - Essential (primary) hypertension
[2018-06-05 15:46] LABS: INR 2.1
[2018-06-05] MEDS: Aspirin 81 MG TAB.CHEW PO SCH (16:22)
[2018-06-05] MEDS ORDERED: Artificial Tears SOLN 15 ML BOTTLE BOTH EYES PRN (18:21)
[2018-06-06] MEDS: Insulin LISPRO 300 UNITS/3 ML VIAL SQ SCH ×2 (00:51→05:32)
[2018-06-06 05:23] LABS: Basophils % 0.3 %; Eosinophils # 0.1 K/mcL (0.0-0.6); Eosinophils % 2.2 %; Hemoglobin 15.2 g/dL (12.9-16.9); Immature Granulocytes % 0.3 % (0-4); Lymphocytes # 1.9 K/mcL (0.6-4.6); Mean Corpuscular HGB Conc 34.5 g/dL (31.6-35.5); Mean Corpuscular Hemoglobin 30.9 pg (28.0-33.3); Mean Corpuscular Volume 89.4 fL (83.0-100.0); Mean Platelet Volume 9.2 fL (9.4-12.4); Monocytes # 0.5 K/mcL (0.0-1.3); Monocytes % 8.1 %; Neutrophils # 3.7 K/mcL (1.6-8.9); Platelet Count 222 K/mcL (140-400); Red Blood Count 4.92 M/mcL (4.19-5.50); Red Cell Distribution Width 13.5 % (11.5-14.5); Segmented Neutrophils % 59.1 %
[2018-06-06 05:25] LABS: Prothrombin Time 22.7 Seconds (9.4-12.1)
[2018-06-06 05:41] LABS: BUN/Creatinine Ratio 21 (6-26); Blood Urea Nitrogen 17 mg/dL (8-23); Calcium 9.7 mg/dL (8.6-10.3); Carbon Dioxide 26 mEq/L (23-29); Chloride 109 mEq/L (98-107); Glucose 124 mg/dL (70-105); Osmolality,Calculated 293 (280-300); Potassium 3.8 mEq/L (3.5-5.1); Sodium 140 mEq/L (136-145); eGFR For Non-African Americans > 60 (> 60)
[2018-06-06] MEDS: Aspirin 81 MG TAB.CHEW PO SCH (08:24)
[2018-06-06] MEDS ORDERED: *HR* Ticagrelor 90 MG TABLET PO SCH (09:00)
--- NOTE | 2018-06-06 10:18 | Cardiology Progress Note ---
Date of Encounter: 06/06/18 Time of Encounter: 08:30 Assessment and Plan (1) Chest pain Current Visit: Yes Status: Acute Per cardiology: -Patient reports chest pain similar to his GERD symptoms, atypical chest pain. Denies exertional symptoms. -Denies current chest pain. -ECG with non-specific ST and T wave abnormalities noted, unknown baseline. -Stress test negative for ischemia or infarct, see addended report. -On asa, BB, on statin at home. -TTE with LVEF preserved, no segmental wall motion abnormalities noted. -Patient was initially scheduled for [facility] today. After discussing symptoms and negative stress test results with patient, patient has elected for medical management at this time. Will stop brilinta due to need for coumadin for a.fib. -Patient has [facility]ology appointment 06/23/18. Recommend he follow with [facility]ology closely. Recommend patient return to ER for any recurrence of chest pain. Patient states understanding and agrees with plan. -Discussed and reviewed with . Cardiology will sign off. (2) History of atrial fibrillation Current Visit: Yes Status: Acute Per cardiology: -HX PAF. -on warfarin for primary stroke risk reduction. -Hx bradycardia with atenolol for rate control for A fib, with PPMK for sick sinus syndrome. -Will resume coumadin. (3) Tobacco abuse Current Visit: Yes Status: Acute Per cardiology: -Continues to smoke against medical advice, discussed smoking cessation, pt will consider. Discussion w patient/family: The assessment and plan as outlined above was discussed with the patient who expressed understanding and agreement. All questions were answered. Thank you for involving us in the care of your patient. Please call with any questions. Discussed and reviewed with . Subjective Principal diagnosis: chest pain Interval history: Patient reports chest pain that awoke him from sleep on Wednesday morning. Patient states evening, he had a "greasy dinner." Patient states pain was similar to his GERD symptoms. Patient states he is very active at home and denies exertional chest pain. Denies shortness of breath or increased fatigue. Objective Vital Signs, Last 4 Hours Temp Pulse Resp BP Pulse Ox 06/06/18 07:52 97.3 F L 65 17 139/87 98 General: Conversant, No Apparent Distress HEENT: Atraumatic, Normocephaly, Mucus Membranes Moist Neck: No JVD, Normal carotid pulses Cardiac: Reg Rate and Rhythm, Normal S1 and S2, No Murmur Lungs: Normal Breath Sounds, No Wheeze, Rales, Rhonchi Neuro: Alert and responsive, No focal deficits noted Abdomen: Soft, Non-Tender Skin: No rashes noted on visualized skin Musculoskeletal: No Chest Wall Tenderness Extremities: No Clubbing, No Cyanosis, No Edema, Normal Pulses Results 06/06/18 04:39 06/06/18 04:39 Lab Results Active Medications Artificial Tears (Akwa Tears) 1 drop BOTH EYES QID PRN; Protocol PRN Reason: Dry eyes Stop: 12/05/18 21:01 Last Admin: 06/05/18 20:02 Dose: 1 drop Aspirin (Aspirin) 81 mg PO DAILY [facility] Stop: 12/05/18 15:16 Last Admin: 06/06/18 08:24 Dose: 81 mg Atenolol (Tenormin) 25 mg PO DAILY [facility] Stop: 12/04/18 09:01 Last Admin: 06/06/18 08:24 Dose: 25 mg Dextrose/Water (Dextrose 50% (Syg)) 25 ml IVP AD PRN PRN Reason: Hypoglycemia Stop: 12/04/18 02:45 Glucagon (Glucagen) 1 mg IM ONCE PRN PRN Reason: Hypoglycemia Stop: 12/04/18 02:45 Glucose (Gluctose) 15 gm PO ONCE PRN PRN Reason: Hypoglycemia Stop: 12/04/18 02:45 Glucose (Gluctose) 30 gm PO ONCE PRN PRN Reason: Hypoglycemia Stop: 12/04/18 02:45 Dextrose (Dextrose 5%) 1,000 mls @ 100 mls/hr IVC .Q10H PRN PRN Reason: HYPOGLYCEMIA Stop: 12/04/18 02:45 Insulin Human Lispro (Humalog) 0 units SQ Q6HR BETY PRN Reason: Protocol Stop: 12/04/18 06:01 Last Admin: 06/06/18 05:32 Dose: Not Given Naloxone HCl (Narcan) 0.4 mg IVP Q2MIN PRN PRN Reason: SEE COMMENTS Stop: 12/04/18 02:44 Nitroglycerin (Nitroglycerin) 0.4 mg SL Q5MIN PRN PRN Reason: Chest Pain Stop: 12/04/18 02:47 Omeprazole (Prilosec) 40 mg PO DAILY@0730 [facility] Stop: 12/04/18 07:31 Last Admin: 06/06/18 08:24 Dose: 40 mg Ticagrelor (Brilinta) 90 mg PO BID [facility] Stop: 12/06/18 09:01 Last Admin: 06/06/18 08:24 Dose: 90 mg Laboratory Tests 06/03/18 06/04/18 06/04/18 21:11 03:30 09:13 Hgb INR Creatinine Troponin I < 0.03 < 0.03 < 0.03 06/06/18 06/06/18 06/06/18 04:39 04:39 04:39 Hgb 15.2 INR 2.0 Creatinine 0.82 Troponin I - Imaging and Cardiology Chest Xray: report reviewed Stress Test: report reviewed Echo: report reviewed - EKG Interpretation EKG results cardiology: personally reviewed (ECG with SR, HR 61. Non-specific ST and T wave abnormalities noted.), other (Telemetry reviewed with average HR previous 12 hours noted to be 63, a.fib with intermittent paced rhythm. PVCs noted.) Consult Discharge Plan - Plan [facility]errals: [facility] [Primary Care Provider] -
[2018-06-06 11:13] VITALS: BP 146/92
--- NOTE | 2018-06-06 11:34 | Discharge Summary ---
- NOTES TO OUTPATIENT PROVIDER Notes to Outpatient Provider: Cardiac stress test negative for any ischemia suspect CP r/t indigestion- cont ASA statin BB Orders not resulted at time of discharge: Pending orders 06/04/18 09:04 NM michele perf SPECT multi [NM] Routine 06/05/18 14:10 ECG 12 lead ECG [ECG] Routine 06/06/18 12:45 CL Cardiac Catheterization [CL] Routine 06/07/18 04:00 PT/INR [Prothrombin Time INR] [COAG] AM 0400 Date of Encounter: 06/06/18 Time of Encounter: 11:30 - Discharge Diagnosis (1) Chest pain Priority: Primary Status: Acute Qualifiers: Chest pain type: unspecified Qualified Code(s): R07.9 - Chest pain, unspecified (2) Diabetes Priority: Secondary Status: Acute Qualifiers: Diabetes mellitus type: type 2 Diabetes mellitus mcfp insulin use: without mcfp use Diabetes mellitus complication status: without complication Qualified Code(s): E11.9 - Type 2 diabetes mellitus without complications (3) History of atrial fibrillation Priority: Secondary Status: Acute (4) Hypertension Priority: Secondary Status: Chronic Qualifiers: Hypertension type: essential hypertension Qualified Code(s): I10 - Essential (primary) hypertension Hospital course: Mr. Wilks is a 62 year old male with past medical hx of CAD HTN atrial fib on coumadin Presnted to the ED with complaints of sudden onset severe 8/10 mid epigastric pain lasting approx one hour - he did consume a heavy greasy meal and took an antacid which did improve the sx some . He was persuaded by a friend to seek medical attention. His trop were negative x3 EKG with no ST T wave abnormalities. He underwent a cardiac stress test which was negative for ischeia- He was seen by cardiology- and patient will cont medical management and follow up with his traffic investigator at the [facility] He is CP free and hemodynmically stable Advised to cont home meds. He verbalized understanding - he is ready for discharge Discharge discussed with: patient - Time Spent with Patient Total time spent providing and/or coordinating discharge services: - Discharge Medications Prescriptions: Aspirin 81 mg PO DAILY #30 tab.chew Home Medications: Albuterol Sulfate [Albuterol Inhaler] 2 puff IH Q4HR PRN 06/04/18 [History] Atenolol [Tenormin] 12.5 mg PO DAILY 06/04/18 [History] Cyclobenzaprine HCl 10 mg PO TID PRN 06/04/18 [History] Dextran 70/Hypromellose [Natural Balance Tears Eye Drop] 1 drop BOTH EYES QID [History] Donepezil [Aricept] 5 mg PO HS 06/04/18 [History] Latanoprost [Xalatan] 1 drop BOTH EYES HS 06/04/18 [History] Loratadine [Allergy Relief] 10 mg PO DAILY 06/04/18 [History] Metformin HCl 500 mg PO BID 06/04/18 [History] Naproxen 500 mg PO Q12H PRN 06/04/18 [History] Omeprazole [PriLOSEC] 40 mg PO DAILY 06/04/18 [History] Pravastatin Sodium [Pravachol] 40 mg PO HS 06/04/18 [History] Tramadol HCl [Ultram] 50 mg PO QID PRN 06/04/18 [History] Warfarin [Coumadin] 7 mg PO SUTUWETHSA 06/04/18 [History] Warfarin [Coumadin] 7.5 mg PO MOFR 06/04/18 [History] amLODIPine [Norvasc] 5 mg PO DAILY 06/04/18 [History] glipiZIDE [Glucotrol] 5 mg PO 0800 06/04/18 [History] traZODone [TraZODone] 50 - 100 mg PO HS PRN 06/04/18 [History] Aspirin 81 mg PO DAILY #30 tab.chew 06/06/18 [Rx] Allergies/Adverse Reactions: 3 Allergy/AdvReac Type Severity Reaction Status Date / Time No Known Allergies Allergy Verified 06/03/18 20:55 Date of admission: 06/04/18 00:18 [facility] care physician: [facility] Consults: 06/04/18 15:11 Consult to Cardiology [CONS] Routine Comment: Consulting Provider: Cardiology Christa Reason for Consult: abnormal stress Time Notified: 15:13 Call Completed: Yes Discharging clinician: Gertrudis Miner Anticipated date of discharge: 06/06/18 - Constitutional Vitals: Temp Pulse Resp BP Pulse Ox 97.5 F L 75 16 146/92 99 06/06/18 11:12 06/06/18 11:12 06/06/18 11:12 06/06/18 11:12 06/06/18 11:12 General appearance: Present: cooperative, A&O X 3, pleasant, no acute distress, answers questions appropriately Exam: see above - Head Head exam: Present: atraumatic, normocephalic - Eye Eye exam: Present: PERRL, conjuntiva pink, sclera anicteric Pupils: Present: PERRL - Neck Neck exam general surgery: Present: supple, trachea midline. Absent: lymphadenopathy - Respiratory Respiratory exam: Present: CTAB. Absent: accessory muscle use, rales, rhonchi, wheezes - Cardiovascular Cardiovascular exam: Present: RRR, +S1, +S2. Absent: diastolic murmur, gallop, rubs, systolic murmur - GI/Abdominal GI/Abdominal exam: Present: normal bowel sounds, soft, no peritoneal signs. Absent: distended, tenderness - Extremities Exam Extremities exam: Present: warm, radial pulses palpable and symmetrical. Absent : calf tenderness, cyanotic, pedal edema - Neurological Exam Neurological exam: Present: CN II-XII intact, oriented X3, no focal deficits. Absent: pronater drift, facial droop, speech deficit - Skin Skin exam: Present: dry, intact - Patient Status Disposition: Home, Self-Care Condition: Good Functional capacity at discharge: independent ambulation Overall status at discharge: patient is back to baseline - Discharge Instructions Instructions: Aspirin (By mouth), Chest Pain (DC), Diabetes Mellitus Type 2 in Adults (DC) [facility]: [facility] [[facility] Care Provider[facility] - 06/10/18 11:00 am (Kaylah Mitchell) Additional Instructions: Follow up with [facility] as scheduled on 06/23/18.
--- NOTE | 2018-06-06 14:46 | Electrocardiograph Report ---
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
[2018-06-06] MEDS ORDERED: Warfarin perPT PO PRN (18:00)
== END 2018-06-06 11:57 | disposition home or self-care (01) ==
LOC: EMEROOARM 20:51 → 3BNU 20:51
PROVIDERS: ADMIT Internal Medicine; ATTEND Internal Medicine